=== PATIENT | female | born 1955 | race Caucasian/White ===

== ENCOUNTER → 2018-09-25 | Outpatient (CLI) | payer MEDICARE, OTHER ==
[~2018-09-25] MED LIST: ESCI5 PO
== END | disposition home or self-care (01) ==
LOC: LAB SHORT 10:22 → PLD 10:22
DX: D22.61 Melanocytic nevi of right upper limb, including shoulder (principal); D22.39 Melanocytic nevi of other parts of face; D22.62 Melanocytic nevi of left upper limb, including shoulder; D22.72 Melanocytic nevi of left lower limb, including hip; D22.71 Melanocytic nevi of right lower limb, including hip
CPT/HCPCS: 88305

== ENCOUNTER 2019-01-28 12:54 | Day surgery (SDC) | payer MEDICARE, OTHER ==
[~2019-01-28] VITALS: Ht 157.5 cm; Wt 55.2 kg
[~2019-01-28 12:54] MED LIST changes: +ANASTROZOLE PO; +CALCIUM 1,0001 EACH PO; +SUPER GREENS
--- NOTE | 2019-01-28 15:05 | NUR ---
01/28/19 1505 Arina Mcleod PT. WANTS TO BE AWAKE FOR PROCEDURE. DR. NGUYEN OK WITH THIS. PT. TO LET STAFF KNOW IF SHE WANTS ANY MEDICATION.
--- NOTE | 2019-01-28 16:04 | NUR ---
01/28/19 1604 Arina Mcleod 4ML [place] USED FOR POLYP REMOVAL
== END 2019-01-28 16:38 | disposition home or self-care (01) ==
LOC: ORSCSDS 12:54
PROVIDERS: Student in an Organized Health Care Education/Training Program
PROC: 0DBK8ZX Excision of Ascending Colon, Via Natural or Artificial Opening Endoscopic, Diagnostic (ICD-10-PCS; principal; 2019-01-28 14:30)
PROC: 0DBH8ZX Excision of Cecum, Via Natural or Artificial Opening Endoscopic, Diagnostic (ICD-10-PCS; principal; 2019-01-28 14:30)
DX: Z12.11 Encounter for screening for malignant neoplasm of colon (principal); D12.0 Benign neoplasm of cecum; D12.2 Benign neoplasm of ascending colon; K57.30 Diverticulosis of large intestine without perforation or abscess without bleeding; K64.8 Other hemorrhoids; K21.9 Gastro-esophageal reflux disease without esophagitis; Z87.891 Personal history of nicotine dependence; Z79.899 Other long term (current) drug therapy
CPT/HCPCS: 88305; J2704; J7120

== ENCOUNTER 2019-04-25 06:19 | Day surgery (SDC) | payer MEDICARE, OTHER ==
[~2019-04-25] VITALS: Ht 157.5 cm; Wt 56.7 kg
== END 2019-04-25 09:09 | disposition home or self-care (01) ==
LOC: ORSCSDS 06:19
PROVIDERS: Podiatrist Foot & Ankle Surgery
PROC: 0QBN0ZZ Excision of Right Metatarsal, Open Approach (ICD-10-PCS; principal; 2019-04-25 07:30)
PROC: 0QBQ0ZZ Excision of Right Toe Phalanx, Open Approach (ICD-10-PCS; principal; 2019-04-25 07:30)
DX: M20.21 Hallux rigidus, right foot (principal); J44.9 Chronic obstructive pulmonary disease, unspecified; F17.210 Nicotine dependence, cigarettes, uncomplicated; F41.8 Other specified anxiety disorders; Z79.899 Other long term (current) drug therapy
CPT/HCPCS: J0171; J0690; J2405; J3010; J7120

== ENCOUNTER → 2019-05-08 | Outpatient (CLI) | payer MEDICARE, OTHER | END | disposition home or self-care (01) | LOC: OLS 08:21 → LAB SHORT 08:21 | DX: D22.72 Melanocytic nevi of left lower limb, including hip (principal); D22.5 Melanocytic nevi of trunk | CPT/HCPCS: 88305 ==

== ENCOUNTER 2019-07-13 17:23 | Emergency (ER) | payer MEDICARE, OTHER ==
[~2019-07-13] VITALS: Ht 157.5 cm; Wt 55.3 kg
[2019-07-13 17:59] LABS: BASOPHILS ABSOLUTE AUTO 0.04 K/mm3 (0.00-0.23); BASOPHILS PERCENT AUTO 0 % (0-2); EOSINOPHILS ABSOLUTE AUTO 0.16 K/mm3 (0.00-0.68); EOSINOPHILS PERCENT AUTO 1 % (0-6); Hematocrit 44.3 % (33.0-51.0); Hemoglobin 14.2 g/dL (11.5-16.0); IMMATURE GRAN ABSOLUTE AUTO 0.05 K/mm3 (0.00-0.10); IMMATURE GRAN PERCENT AUTO 0 % (0-1); LYMPHOCYTES ABSOLUTE AUTO 2.22 K/mm3 (0.84-5.20); LYMPHOCYTES PERCENT AUTO 15 % (21-46); MONOCYTES ABSOLUTE AUTO 1.45 K/mm3 (0.16-1.47); MONOCYTES PERCENT AUTO 10 % (4-13); Mean Corpuscular HGB 30.2 pg (26.0-34.0); Mean Corpuscular HGB Conc 32.1 g/dL (31.5-36.5); Mean Corpuscular Volume 94 fL (80-100); Mean Platelet Volume 10.7 fL (9.1-12.4); NEUTROPHILS ABSOLUTE AUTO 10.68 K/mm3 (1.96-9.15); NEUTROPHILS PERCENT AUTO 73 % (41-73); Platelet Count 297 K/mm3 (150-400); RDW Coefficient Variation 14.5 % (11.7-14.2); RDW Standard Deviation 50.8 fL (35.1-46.3)
[2019-07-13 18:16] LABS: Alanine Aminotransfer (ALT/SGP 37 U/L (12-78); Albumin, Blood 3.8 g/dL (3.4-5.0); Alk Phos 63 U/L (50-136); Anion Gap 7 mmol/L (6-16); Aspartate Aminotrans (AST/SGOT 29 U/L (12-37); Bilirubin, Total 0.3 mg/dL (0.1-1.0); Blood Urea Nitrogen 25 mg/dL (8-24); Bun/Creatinine Ratio 33.1 (12.0-20.0); CO2, Blood 29 mmol/L (21-32); Calcium, Blood 9.1 mg/dL (8.5-10.1); Chloride, Blood 102 mmol/L (98-108); Creatinine, Blood 0.76 mg/dL (0.40-1.00); Globulin, Blood 3.8 g/dL (2.2-4.0); Glomerular Filtration Rate >60 (60-); Glucose, Blood 89 mg/dL (70-99); Potassium, Blood 3.4 mmol/L (3.5-5.5); Sodium, Blood 138 mmol/L (136-145); Total Protein, Blood 7.6 g/dL (6.4-8.2); Troponin I <0.015 ng/mL (0.000-0.040)
[2019-07-13] MEDS ORDERED: MAALOX ADVANCE1 EACH PO (18:46)
[2019-07-13] MEDS ORDERED: Zantac150 MG PO (18:46)
== END 2019-07-13 18:50 | disposition home or self-care (01) ==
LOC: ER 17:23
PROVIDERS: Physician Assistant
DX: K21.0 Gastro-esophageal reflux disease with esophagitis (principal); Z88.5 Allergy status to narcotic agent; Z91.040 Latex allergy status; Z87.891 Personal history of nicotine dependence
CPT/HCPCS: 36415; 71046; 80053; 84484; 85025; 93005; 93010; 99284-25

== ENCOUNTER → 2020-11-10 | Outpatient (CLI) | payer MEDICARE, OTHER ==
[~2020-11-10] MED LIST changes: +MAALOX ADVANCE1 EACH PO; +Zantac150 MG PO
== END | disposition home or self-care (01) ==
LOC: LAB SHORT 09:16 → PLD 09:16
DX: D48.5 Neoplasm of uncertain behavior of skin (principal)
CPT/HCPCS: 88305

== ENCOUNTER → 2021-04-26 | Outpatient (CLI) | payer MEDICARE, OTHER | END | disposition home or self-care (01) | LOC: LAB 12:08 → LAB SHORT 12:08 | DX: D22.71 Melanocytic nevi of right lower limb, including hip (principal) | CPT/HCPCS: 88305 ==

== ENCOUNTER 2025-03-13 18:52 | Emergency (ER) | payer MEDICARE, OTHER ==
[~2025-03-13] VITALS: Ht 160 cm; Wt 59.0 kg
[2025-03-13] MEDS ORDERED: NS 1,000 ML IV SCH (19:20)
[2025-03-13 19:21] LABS: BASOPHILS ABSOLUTE AUTO 0.06 K/mm3 (0.00-0.23); BASOPHILS PERCENT AUTO 1 % (0-2); EOSINOPHILS ABSOLUTE AUTO 0.12 K/mm3 (0.00-0.68); EOSINOPHILS PERCENT AUTO 1 % (0-6); Hematocrit 42.2 % (33.0-51.0); Hemoglobin 14.6 g/dL (11.5-16.0); IMMATURE GRAN ABSOLUTE AUTO 0.05 K/mm3 (0.00-0.10); IMMATURE GRAN PERCENT AUTO 1 % (0-1); LYMPHOCYTES ABSOLUTE AUTO 2.32 K/mm3 (0.84-5.20); LYMPHOCYTES PERCENT AUTO 27 % (21-46); MONOCYTES ABSOLUTE AUTO 1.00 K/mm3 (0.16-1.47); MONOCYTES PERCENT AUTO 12 % (4-13); Mean Corpuscular HGB Conc 34.6 g/dL (31.5-36.5); Mean Corpuscular Volume 93 fL (80-100); NEUTROPHILS ABSOLUTE AUTO 5.05 K/mm3 (1.96-9.15); NEUTROPHILS PERCENT AUTO 59 % (41-73); NRBC ABSOLUTE 0.00 K/mm3 (0.00-0.02); NRBC Auto 0.0 /100 WBC (0.0-0.2); Platelet Count 232 K/mm3 (150-400); RDW Coefficient Variation 16.1 % (11.7-14.2); RDW Standard Deviation 54.8 fL (35.1-46.3)
[2025-03-13] MEDS ORDERED: Albuterol 2.5 MG/3 ML VIAL INH SCH (19:30)
[2025-03-13 19:32] LABS: Alanine Aminotransfer (ALT/SGP 33.0 U/L (12-78); Albumin, Blood 3.6 g/dL (3.4-5.0); Albumin/Globulin Ratio 1.1 (0.8-1.8); Anion Gap 15.0 mmol/L (3-11); Aspartate Aminotrans (AST/SGOT 32.0 U/L (12-37); Bilirubin, Total 0.2 mg/dL (0.1-1.0); Blood Urea Nitrogen 15.0 mg/dL (8-24); CO2, Blood 21.0 mmol/L (21-32); Calcium, Blood 9.4 mg/dL (8.5-10.1); Chloride, Blood 107.0 mmol/L (98-108); Creatinine, Blood 1.06 mg/dL (0.40-1.00); Globulin, Blood 3.3 g/dL (2.2-4.0); Glucose, Blood 98.0 mg/dL (70-99); Potassium, Blood 3.6 mmol/L (3.5-5.5); Sodium, Blood 139.0 mmol/L (136-145); Total Protein, Blood 6.9 g/dL (6.4-8.2)
[2025-03-13] MEDS ORDERED: RX Prepack Albuterol 1 PREPACK/6.7 GM INH UD ONE (22:25)
[2025-03-13 22:30] VITALS: BP 141/99
== END 2025-03-13 22:46 | disposition home or self-care (01) ==
LOC: ER 18:52
PROVIDERS: Emergency Medicine
DX: T59.811A Toxic effect of smoke, accidental (unintentional), initial encounter (principal); T22.10XA Burn of first degree of shoulder and upper limb, except wrist and hand, unspecified site, initial encounter; T31.0 Burns involving less than 10% of body surface; Z88.5 Allergy status to narcotic agent; Z91.040 Latex allergy status; Z90.49 Acquired absence of other specified parts of digestive tract; Z90.710 Acquired absence of both cervix and uterus; F17.200 Nicotine dependence, unspecified, uncomplicated
CPT/HCPCS: 71045; 80053; 82375; 85025; 93005; 93010; 99284-25; A9270; J7030